=== PATIENT | male | born 1960 | race Caucasian/White ===

== ENCOUNTER 2016-06-02 15:07 | Emergency (ER) | payer OTHER ==
[~2016-06-02] VITALS: Wt 71.2 kg
[~2016-06-02 15:07] MED LIST: ASPIRIN325 M2 PO; EC NAPROSYN,NA500 MG PO; FLUCONAZOLE100 MG PO; LISINOPRIL10 M1 PO; LISINOPRIL20 MG PO; PANTOPRAZOLE SO40 MG PO; SIMVASTATIN40 MG PO
[2016-06-02] MEDS ORDERED: CILOSTAZOL100 MG PO (15:42)
[2016-06-02] MEDS ORDERED: COREG25 MG PO (15:43)
[2016-06-02] MEDS ORDERED: ACETAMINOPHEN-O1 TAB PO (15:44)
[2016-06-02] MEDS ORDERED: LIPITOR40 MG PO (15:45)
[2016-06-02] MEDS ORDERED: FLOMAX0.4 MG PO (15:45)
[2016-06-02] MEDS ORDERED: KEPPRA500 MG PO (15:46)
[2016-06-02] MEDS ORDERED: VENTOLIN H0.09 MG/AC INH (15:48)
[2016-06-02] MEDS ORDERED: SYMBICORT1 AE1 INH (15:49)
[2016-06-02] MEDS ORDERED: AMITRIPTYLINE10 MG PO (15:50)
[2016-06-02] MEDS ORDERED: NASAL ALLERGY16.9 ML NS (15:51)
[2016-06-02] MEDS ORDERED: TESSALON PERLE100 MG PO (15:54)
[2016-06-02 16:07] LABS: BASO # 0.1 10*3/uL (0.0-0.1); BASO % 0.8 % (0.0-1.0); EOS # 0.2 10*3/uL (0.0-0.4); EOS % 1.9 % (1.0-4.0); HEMATOCRIT 40.3 % (42.0-52.0); HEMOGLOBIN 13.1 g/dl (14.0-18.0); LYMPH # 1.8 10*3/uL (1.3-4.4); MEAN CELL VOLUME 92.9 fl (80.0-94.0); MEAN CORPUSCULAR HGB 30.2 pg (27.0-31.0); MEAN CORPUSCULAR HGB CONC 32.5 g/dl (33.0-37.0); MEAN PLATELET VOLUME 9.4 fl (9.6-12.3); MONO # 0.7 10*3/uL (0.1-1.0); MONO % 7.3 % (3.0-9.0); NEUT # 6.7 10*3/uL (2.3-7.9); NEUT % 70.6 % (47.0-73.0); PLATELET COUNT AUTOMATED 219 10*3/uL (130-400); RED BLOOD COUNT 4.34 10*6/uL (4.50-5.90); RED CELL DISTRI WIDTH 14.2 % (0-14.5); WHITE BLOOD COUNT 9.5 10*3/uL (4.8-10.8)
[2016-06-02 16:15] LABS: INTERNATIONAL NORM RATIO 0.9 (2.0-3.5)
[2016-06-02 16:21] LABS: ALBUMIN 3.9 gm/dl (3.1-4.5); ALKALINE PHOSPHATASE 89 U/L (45-117); BILIRUBIN, TOTAL 0.3 mg/dl (0.2-1.0); BUN 9 mg/dl (7-24); C-REACTIVE PROTEIN 0.68 MG/DL (0-0.3); CARBON DIOXIDE 28 mmol/L (21-32); CHLORIDE 108 mmol/L (98-107); EST GLOM FILT AFRICAN AMERICAN > 60 ml/min; GLUCOSE 96 mg/dL (65-99); POTASSIUM 4.2 mmol/L (3.5-5.1); SGOT/AST 13 IU/L (3-35); SGPT/ALT 25 U/L (12-78); SODIUM 144 mmol/L (136-145); TOTAL PROTEIN 7.4 gm/dL (6.4-8.2)
== END 2016-06-03 02:52 | disposition home or self-care (01) ==
LOC: ED 15:07
PROVIDERS: Physician Assistant
DX: I97.638 Postprocedural hematoma of a circulatory system organ or structure following other circulatory system procedure (principal); F17.200 Nicotine dependence, unspecified, uncomplicated; Z79.82 Long term (current) use of aspirin; Z79.899 Other long term (current) drug therapy

== ENCOUNTER 2016-10-05 12:52 | Emergency (ER) | payer OTHER ==
[~2016-10-05] VITALS: Ht 172.7 cm; Wt 70.8 kg
[~2016-10-05 12:52] MED LIST changes: +ACETAMINOPHEN-O1 TAB PO; +AMITRIPTYLINE10 MG PO; +CILOSTAZOL100 MG PO; +COREG25 MG PO; +FLOMAX0.4 MG PO; +KEPPRA500 MG PO; +LIPITOR40 MG PO; +NASAL ALLERGY16.9 ML NS; +SYMBICORT1 AE1 INH; +TESSALON PERLE100 MG PO; +VENTOLIN H0.09 MG/AC INH
== END 2016-10-05 21:56 | disposition home or self-care (01) ==
LOC: ED 12:52
DX: S90.122A Contusion of left lesser toe(s) without damage to nail, initial encounter (principal); F17.200 Nicotine dependence, unspecified, uncomplicated; Z90.49 Acquired absence of other specified parts of digestive tract; Z79.899 Other long term (current) drug therapy; X58.XXXA Exposure to other specified factors, initial encounter; Y93.89 Activity, other specified; Y92.9 Unspecified place or not applicable; Y99.9 Unspecified external cause status

== ENCOUNTER 2016-10-12 10:22 | Emergency (ER) | payer OTHER ==
[~2016-10-12] VITALS: Ht 172.7 cm; Wt 71.2 kg
[2016-10-12 11:05] LABS: BASO # 0.1 10*3/uL (0.0-0.1); BASO % 0.6 % (0.0-1.0); EOS # 0.2 10*3/uL (0.0-0.4); EOS % 1.9 % (1.0-4.0); HEMATOCRIT 41.5 % (42.0-52.0); HEMOGLOBIN 13.1 g/dl (14.0-18.0); LYMPH # 2.1 10*3/uL (1.3-4.4); LYMPH % 18.8 % (27.0-41.0); MEAN CELL VOLUME 88.7 fl (80.0-94.0); MEAN CORPUSCULAR HGB CONC 31.6 g/dl (33.0-37.0); MEAN PLATELET VOLUME 9.9 fl (9.6-12.3); MONO # 0.7 10*3/uL (0.1-1.0); MONO % 6.2 % (3.0-9.0); NEUT # 7.9 10*3/uL (2.3-7.9); PLATELET COUNT AUTOMATED 219 10*3/uL (130-400); RED BLOOD COUNT 4.68 10*6/uL (4.50-5.90); RED CELL DISTRI WIDTH 13.3 % (0-14.5)
[2016-10-12 11:24] LABS: ALBUMIN 3.7 gm/dl (3.1-4.5); ALKALINE PHOSPHATASE 132 U/L (45-117); BUN 9 mg/dl (7-24); CHLORIDE 105 mmol/L (98-107); CREATININE 1.14 mg/dL (0.70-1.30); SGOT/AST 15 IU/L (3-35); SGPT/ALT 18 U/L (12-78); SODIUM 138 mmol/L (136-145); TOTAL PROTEIN 7.9 gm/dL (6.4-8.2)
[2016-10-12] MEDS ORDERED: HYDROCODONE BIT1 T11 PO (12:20)
[2016-10-12] MEDS ORDERED: CLINDAMYCIN HC300 MG PO (12:20)
== END 2016-10-12 13:38 | disposition home or self-care (01) ==
LOC: ED 10:22
PROVIDERS: Physician Assistant
DX: L03.116 Cellulitis of left lower limb (principal); F17.200 Nicotine dependence, unspecified, uncomplicated; Z79.899 Other long term (current) drug therapy

== ENCOUNTER 2016-10-15 16:48 | Inpatient (IN) | payer OTHER ==
[~2016-10-15] VITALS: Ht 172.7 cm; Wt 72.2 kg
[~2016-10-15 16:48] MED LIST changes: +CLINDAMYCIN HC300 MG PO; +HYDROCODONE BIT1 T11 PO
[2016-10-15 16:53] VITALS: BP 160/84
[2016-10-15 17:52] LABS: BILIRUBIN NEGATIVE (NEGATIVE); BLOOD NEGATIVE (NEGATIVE); CLARITY CLEAR (CLEAR); COLOR YELLOW (YELLOW); GLUCOSE NEGATIVE (NEGATIVE); KETONE NEGATIVE (NEGATIVE); LEUKO ESTERASE NEGATIVE (NEGATIVE); NITRITE NEGATIVE (NEGATIVE); PH 6.5 (5.0-9.0); PROTEIN NEGATIVE (NEGATIVE); SPECIFIC GRAVITY <= 1.005 (1.005-1.030); UROBILINOGEN 0.2 E.U./dl (0.2-1.0)
[2016-10-15 18:00] LABS: BACTERIA TRACE; URINE REFLEX COMMENT NO (NO); WBC 0-2 wbc/hpf (0-5)
[2016-10-15 18:13] LABS: BASO # 0.1 10*3/uL (0.0-0.1); BASO % 0.7 % (0.0-1.0); EOS # 0.3 10*3/uL (0.0-0.4); EOS % 3.1 % (1.0-4.0); HEMATOCRIT 41.7 % (42.0-52.0); HEMOGLOBIN 13.1 g/dl (14.0-18.0); IG # 0.1 10*3/uL (0.0-0.1); LYMPH % 20.5 % (27.0-41.0); MEAN CELL VOLUME 89.9 fl (80.0-94.0); MEAN CORPUSCULAR HGB 28.2 pg (27.0-31.0); MEAN CORPUSCULAR HGB CONC 31.4 g/dl (33.0-37.0); MEAN PLATELET VOLUME 9.9 fl (9.6-12.3); MONO # 0.6 10*3/uL (0.1-1.0); MONO % 5.8 % (3.0-9.0); NEUT # 6.7 10*3/uL (2.3-7.9); NEUT % 69.4 % (47.0-73.0); PLATELET COUNT AUTOMATED 237 10*3/uL (130-400); RED BLOOD COUNT 4.64 10*6/uL (4.50-5.90); RED CELL DISTRI WIDTH 13.5 % (0-14.5); WHITE BLOOD COUNT 9.7 10*3/uL (4.8-10.8)
[2016-10-15 18:28] LABS: ALBUMIN 4.2 gm/dl (3.1-4.5); ALKALINE PHOSPHATASE 147 U/L (45-117); BILIRUBIN, TOTAL 0.3 mg/dl (0.2-1.0); BUN 6 mg/dl (7-24); CARBON DIOXIDE 27 mmol/L (21-32); CHLORIDE 103 mmol/L (98-107); EST GLOM FILT AFRICAN AMERICAN > 60 ml/min; GLUCOSE 90 mg/dL (65-99); POTASSIUM 3.7 mmol/L (3.5-5.1); SGOT/AST 20 IU/L (3-35); SGPT/ALT 26 U/L (12-78); SODIUM 138 mmol/L (136-145); TOTAL PROTEIN 8.6 gm/dL (6.4-8.2)
[2016-10-15 18:32] LABS: TROPONIN I < 0.015 ng/ml (<0.045)
[2016-10-15 20:00] VITALS: BP 160/88
[2016-10-15 20:05] VITALS: BP 160/80
[2016-10-15] MEDS ORDERED: ASPIRIN81 M1 PO (22:19)
[2016-10-15] MEDS ORDERED: CLOPIDOGREL75 MG PO (22:20)
[2016-10-15] MEDS ORDERED: AMITRIPTYLINE10 MG PO ×2 (22:23→22:24)
[2016-10-16] VITALS: BP 121/62
[2016-10-16 04:00] VITALS: BP 169/83
[2016-10-16 05:58] LABS: HEMOGLOBIN A1c 6.4 % (4.8-5.6)
[2016-10-16 06:14] LABS: BUN 9 mg/dl (7-24); CARBON DIOXIDE 29 mmol/L (21-32); CHLORIDE 107 mmol/L (98-107); CHOLESTEROL 101 mg/dL (<200); EST GLOM FILT AFRICAN AMERICAN > 60 ml/min; GLUCOSE 97 mg/dL (65-99); POTASSIUM 3.9 mmol/L (3.5-5.1); PROTHROMBIN TIME 10.2 SECONDS (9.0-12.4); SODIUM 141 mmol/L (136-145); TRIGLYCERIDES 100 mg/dl (<150); VLDL CHOLESTEROL 20 mg/dL (6-40)
[2016-10-16 06:22] LABS: FREE T4 0.81 ng/dl (0.76-1.46); HDL CHOLESTEROL 31 mg/dl (40-60); LDL CHOLESTEROL 50 mg/dL (9-159)
[2016-10-16 06:26] LABS: BASO % 0.6 % (0.0-1.0); EOS # 0.2 10*3/uL (0.0-0.4); EOS % 3.4 % (1.0-4.0); HEMOGLOBIN 11.1 g/dl (14.0-18.0); LYMPH # 1.9 10*3/uL (1.3-4.4); MEAN CELL VOLUME 89.8 fl (80.0-94.0); MEAN CORPUSCULAR HGB 28.4 pg (27.0-31.0); MEAN CORPUSCULAR HGB CONC 31.6 g/dl (33.0-37.0); MEAN PLATELET VOLUME 9.8 fl (9.6-12.3); MONO # 0.6 10*3/uL (0.1-1.0); MONO % 9.5 % (3.0-9.0); NEUT # 3.7 10*3/uL (2.3-7.9); NEUT % 56.9 % (47.0-73.0); PLATELET COUNT AUTOMATED 191 10*3/uL (130-400); RED BLOOD COUNT 3.91 10*6/uL (4.50-5.90); RED CELL DISTRI WIDTH 13.6 % (0-14.5); WHITE BLOOD COUNT 6.5 10*3/uL (4.8-10.8)
[2016-10-16 06:27] LABS: HEMATOCRIT 35.1 % (42.0-52.0)
[2016-10-16 06:48] LABS: FOLIC ACID 4.98 ng/mL (>5.38)
[2016-10-16 08:00] VITALS: BP 142/82
[2016-10-16 16:00] VITALS: BP 169/83
[2016-10-17] VITALS (7 sets, daily range): BP systolic 123–160; BP diastolic 65–84
[2016-10-17 06:42] LABS: BASO # 0.1 10*3/uL (0.0-0.1); BASO % 0.9 % (0.0-1.0); EOS # 0.2 10*3/uL (0.0-0.4); EOS % 3.3 % (1.0-4.0); HEMOGLOBIN 11.3 g/dl (14.0-18.0); LYMPH # 1.7 10*3/uL (1.3-4.4); LYMPH % 24.6 % (27.0-41.0); MEAN CELL VOLUME 90.7 fl (80.0-94.0); MEAN CORPUSCULAR HGB 28.5 pg (27.0-31.0); MEAN CORPUSCULAR HGB CONC 31.4 g/dl (33.0-37.0); MEAN PLATELET VOLUME 9.6 fl (9.6-12.3); MONO # 0.6 10*3/uL (0.1-1.0); MONO % 8.6 % (3.0-9.0); NEUT # 4.3 10*3/uL (2.3-7.9); NEUT % 62.2 % (47.0-73.0); PLATELET COUNT AUTOMATED 195 10*3/uL (130-400); RED BLOOD COUNT 3.97 10*6/uL (4.50-5.90); RED CELL DISTRI WIDTH 13.6 % (0-14.5)
[2016-10-17 07:28] LABS: BUN 10 mg/dl (7-24); CARBON DIOXIDE 29 mmol/L (21-32); CHLORIDE 107 mmol/L (98-107); GLUCOSE 87 mg/dL (65-99); POTASSIUM 4.4 mmol/L (3.5-5.1); SODIUM 142 mmol/L (136-145)
[2016-10-17 07:34] LABS: ALBUMIN 2.9 gm/dl (3.1-4.5); ALKALINE PHOSPHATASE 96 U/L (45-117); BILIRUBIN, TOTAL 0.3 mg/dl (0.2-1.0); EST GLOM FILT AFRICAN AMERICAN > 60 ml/min; SGOT/AST 12 IU/L (3-35); SGPT/ALT 17 U/L (12-78); TOTAL PROTEIN 6.3 gm/dL (6.4-8.2)
[2016-10-18] VITALS: BP 120/58
[2016-10-18 04:00] VITALS: BP 120/58
[2016-10-18 08:00] VITALS: BP 122/68
[2016-10-18 12:00] VITALS: BP 122/68
[2016-10-18] MEDS ORDERED: ACETAMINOPHEN-H1 TA2 PO (15:02)
== END 2016-10-18 16:52 | disposition home health service (06) | DRG 603 ==
LOC: ED 16:48 → EDHOLD 18:39 → 5E 18:39
PROVIDERS: Internal Medicine; Registered Nurse
DX: L03.116 Cellulitis of left lower limb (principal); E44.0 Moderate protein-calorie malnutrition; K21.9 Gastro-esophageal reflux disease without esophagitis; J44.9 Chronic obstructive pulmonary disease, unspecified; F17.200 Nicotine dependence, unspecified, uncomplicated; Z79.51 Long term (current) use of inhaled steroids; Z79.899 Other long term (current) drug therapy; Z90.49 Acquired absence of other specified parts of digestive tract; Z85.53 Personal history of malignant neoplasm of renal pelvis; Z82.0 Family history of epilepsy and other diseases of the nervous system; Z79.1 Long term (current) use of non-steroidal anti-inflammatories (NSAID); Z82.49 Family history of ischemic heart disease and other diseases of the circulatory system; Z79.2 Long term (current) use of antibiotics; Z80.51 Family history of malignant neoplasm of kidney; Z71.6 Tobacco abuse counseling; Z91.018 Allergy to other foods; Z88.8 Allergy status to other drugs, medicaments and biological substances; Z79.82 Long term (current) use of aspirin; Z68.24 Body mass index [BMI] 24.0-24.9, adult

== ENCOUNTER 2016-11-29 15:14 | Emergency (ER) | payer OTHER ==
[~2016-11-29] VITALS: Wt 69.9 kg
[~2016-11-29 15:14] MED LIST changes: +ACETAMINOPHEN-H1 TA2 PO; +ASPIRIN81 M1 PO; +CLOPIDOGREL75 MG PO
== END 2016-11-29 18:39 | disposition home or self-care (01) ==
LOC: ED 15:14
DX: S90.32XA Contusion of left foot, initial encounter (principal); F17.200 Nicotine dependence, unspecified, uncomplicated; Z98.890 Other specified postprocedural states; Z90.89 Acquired absence of other organs; Z79.82 Long term (current) use of aspirin; Z79.899 Other long term (current) drug therapy; Z91.018 Allergy to other foods; W50.0XXA Accidental hit or strike by another person, initial encounter; Y93.89 Activity, other specified; Y92.89 Other specified places as the place of occurrence of the external cause; Y99.9 Unspecified external cause status

== ENCOUNTER 2017-08-15 16:51 | Emergency (ER) | payer OTHER ==
[~2017-08-15] VITALS: Ht 172.7 cm; Wt 74.8 kg
[~2017-08-15 16:51] MED LIST changes: +AMITRIPTYLINE50 MG PO; -KEPPRA500 MG PO; +KEPPRA750 MG PO
[2017-08-15] MEDS ORDERED: MINIPRESS5 MG PO (17:37)
[2017-08-15 17:43] LABS: BASO # 0.1 10*3/uL (0.0-0.1); BASO % 0.9 % (0.0-1.0); EOS # 0.3 10*3/uL (0.0-0.4); EOS % 3.1 % (1.0-4.0); HEMATOCRIT 40.4 % (42.0-52.0); HEMOGLOBIN 12.6 g/dl (14.0-18.0); LYMPH # 2.1 10*3/uL (1.3-4.4); LYMPH % 23.4 % (27.0-41.0); MEAN CELL VOLUME 85.1 fl (80.0-94.0); MEAN CORPUSCULAR HGB 26.5 pg (27.0-31.0); MEAN CORPUSCULAR HGB CONC 31.2 g/dl (33.0-37.0); MEAN PLATELET VOLUME 9.6 fl (9.6-12.3); MONO # 0.6 10*3/uL (0.1-1.0); MONO % 6.5 % (3.0-9.0); NEUT % 65.7 % (47.0-73.0); PLATELET COUNT AUTOMATED 191 10*3/uL (130-400); RED BLOOD COUNT 4.75 10*6/uL (4.50-5.90); RED CELL DISTRI WIDTH 17.9 % (0-14.5); WHITE BLOOD COUNT 9.1 10*3/uL (4.8-10.8)
[2017-08-15 17:51] LABS: ACT PARTIAL THROMBO TIME 23.3 SECONDS (20.8-31.5); INTERNATIONAL NORM RATIO 0.9 (2.0-3.5)
[2017-08-15 17:57] LABS: ALBUMIN 3.9 gm/dl (3.1-4.5); ALKALINE PHOSPHATASE 103 U/L (45-117); BUN 8 mg/dl (7-24); CHLORIDE 111 mmol/L (98-107); CREATININE 1.25 mg/dL (0.70-1.30); POTASSIUM 3.6 mmol/L (3.5-5.1); SGOT/AST 14 IU/L (3-35); SGPT/ALT 26 U/L (12-78); SODIUM 144 mmol/L (136-145); TOTAL PROTEIN 7.3 gm/dL (6.4-8.2)
[2017-08-15] MEDS ORDERED: VITAMIN D50000 UNIT PO (18:22)
[2017-08-15] MEDS ORDERED: COREG25 MG PO (18:23)
[2017-08-15] MEDS ORDERED: PROVENTIL HFA6.7 GM INH (18:23)
[2017-08-15] MEDS ORDERED: LIPITOR40 MG PO (18:24)
[2017-08-15] MEDS ORDERED: FLOMAX0.4 MG PO (18:25)
[2017-08-15] MEDS ORDERED: REMERON30 M1 PO (18:25)
[2017-08-15] MEDS ORDERED: NASACORT16.9 ML INH (18:27)
[2017-08-15] MEDS ORDERED: SYMB160 INH (18:28)
[2017-08-15] MEDS ORDERED: NEURONTIN300 MG PO (18:29)
[2017-08-15] MEDS ORDERED: TOPAMAX50 MG PO (18:30)
[2017-08-15] MEDS ORDERED: NORCO 5-325 TA1 EACH PO (19:05)
== END 2017-08-15 19:15 | disposition home or self-care (01) ==
LOC: ED 16:51
PROVIDERS: Physician Assistant
DX: S90.31XA Contusion of right foot, initial encounter (principal); F17.200 Nicotine dependence, unspecified, uncomplicated; Z90.49 Acquired absence of other specified parts of digestive tract; Z98.890 Other specified postprocedural states; Z79.899 Other long term (current) drug therapy; Z79.82 Long term (current) use of aspirin; Z91.018 Allergy to other foods; W22.8XXA Striking against or struck by other objects, initial encounter; Y93.89 Activity, other specified; Y92.89 Other specified places as the place of occurrence of the external cause; Y99.9 Unspecified external cause status

== ENCOUNTER → 2019-02-21 | Outpatient (CLI) | payer OTHER ==
[~2019-02-21] MED LIST changes: +MINIPRESS5 MG PO; +NASACORT16.9 ML INH; +NEURONTIN300 MG PO; +NORCO 5-325 TA1 EACH PO; +PROVENTIL HFA6.7 GM INH; +REMERON30 M1 PO; +SYMB160 INH; +TOPAMAX50 MG PO; +VITAMIN D50000 UNIT PO
== END | disposition home or self-care (01) ==
LOC: US 10:00
DX: I73.9 Peripheral vascular disease, unspecified (principal)

== ENCOUNTER 2021-04-07 14:03 | Emergency (ER) | payer OTHER ==
[~2021-04-07] VITALS: Ht 172.7 cm; Wt 61.2 kg
[2021-04-07 15:11] LABS: BASO # 0.1 10*3/uL (0.0-0.1); BASO % 0.6 % (0.0-1.0); EOS # 0.2 10*3/uL (0.0-0.4); EOS % 2.1 % (1.0-4.0); LYMPH # 1.8 10*3/uL (1.3-4.4); LYMPH % 15.9 % (27.0-41.0); MEAN CORPUSCULAR HGB 28.5 pg (27.0-31.0); MEAN CORPUSCULAR HGB CONC 30.7 g/dl (33.0-37.0); MEAN PLATELET VOLUME 9.6 fl (9.6-12.3); MONO # 0.6 10*3/uL (0.1-1.0); MONO % 5.1 % (3.0-9.0); NEUT # 8.4 10*3/uL (2.3-7.9); NEUT % 75.8 % (47.0-73.0); PLATELET COUNT AUTOMATED 248 10*3/uL (130-400); RED BLOOD COUNT 4.84 10*6/uL (4.50-5.90); RED CELL DISTRI WIDTH 14.8 % (0-14.5); WHITE BLOOD COUNT 11.1 10*3/uL (4.8-10.8)
[2021-04-07 15:27] LABS: ACT PARTIAL THROMBO TIME 25.5 SECONDS (20.0-32.1); INTERNATIONAL NORM RATIO 0.9 (2.0-3.5)
[2021-04-07 15:51] LABS: ALBUMIN 3.6 gm/dl (3.1-4.5); ALKALINE PHOSPHATASE 140 U/L (45-117); BUN 9 mg/dl (7-24); CHLORIDE 107 mmol/L (98-107); CREATININE 1.26 mg/dL (0.70-1.30); LIPASE 192 U/L (73-393); POTASSIUM 4.2 mmol/L (3.5-5.1); SGOT/AST 12 IU/L (3-35); SGPT/ALT 25 U/L (12-78); SODIUM 138 mmol/L (136-145); TOTAL PROTEIN 7.5 gm/dL (6.4-8.2)
== END 2021-04-07 17:52 | disposition home or self-care (01) ==
LOC: ED 14:03
PROVIDERS: Emergency Medicine
DX: G52.9 Cranial nerve disorder, unspecified (principal); I10 Essential (primary) hypertension; J44.9 Chronic obstructive pulmonary disease, unspecified; K21.9 Gastro-esophageal reflux disease without esophagitis; E78.00 Pure hypercholesterolemia, unspecified; Z91.018 Allergy to other foods; Z79.82 Long term (current) use of aspirin; Z79.899 Other long term (current) drug therapy; Z90.89 Acquired absence of other organs; Z98.890 Other specified postprocedural states; Z90.49 Acquired absence of other specified parts of digestive tract; Z87.891 Personal history of nicotine dependence